=== PATIENT | male | born 1960 | race Caucasian/White ===

== ENCOUNTER → 2017-08-19 | Outpatient (CLI) | payer OTHER | END | disposition home or self-care (01) | LOC: RADMRIMAIN 05:55 | PROVIDERS: ATTEND Orthopaedic Surgery | DX: Z53.9 Procedure and treatment not carried out, unspecified reason (principal) ==

== ENCOUNTER → 2018-08-18 | Outpatient (CLI) | payer OTHER ==
--- NOTE | 2018-08-18 19:01 | CT ---
EXAMINATION TYPE: CT sinus wo con DATE OF EXAM: 08/18/2018 COMPARISON: 09/20/2015 HISTORY: Chronic sinusitis. CT DLP: 661.6 mGycm CONTRAST: 0 mL of Isovue 300 The paranasal sinuses are examined in the axial plane at 2 mm thick sections. Reconstructed images i n the coronal plane were obtained. There is mucosal thickening through the left maxillary sinus. Mucosal thickening and air-fluid levels within the right maxillary sinus. Air-fluid levels are within the sphenoid sinuses. There is opacifi cation of the ethmoid air cells bilaterally. There is an air-fluid level within the frontal sinus. Th e right frontal sinus may be severely hypoplastic. The septum is evaluated. There is septal deviation to the right. There appears to be prior uncinectomies. However, the hiatus semilunaris appears obstructed bilateral ly. IMPRESSIONS: 1. Pansinusitis. Acute sinusitis may be present. Consider polyposis potentially within the different ial. Findings appear recurrent from 09/20/2015
== END ==
LOC: RADCTMAIN 17:04
PROVIDERS: ATTEND Physician Assistant
DX: J32.4 Chronic pansinusitis (principal)
CPT/HCPCS: 70486

== ENCOUNTER → 2019-01-20 | Outpatient (CLI) | payer OTHER ==
--- NOTE | 2019-01-21 11:37 | XR ---
EXAMINATION TYPE: XR chest 2V DATE OF EXAM: 01/20/2019 COMPARISON: NONE HISTORY: History of COPD with chest congestion and recent pneumonia per patient. TECHNIQUE: Frontal and lateral views of the chest are obtained. FINDINGS: There is some chronic parenchymal change without suspicious focal air space opacity, pleur al effusion, or pneumothorax seen. Eventration of right hemidiaphragm is present. The cardiac silhoue tte size is upper limits of normal with slightly ectatic thoracic aorta. The osseous structures are intact. IMPRESSION: No suspicious acute pulmonary process.
== END | disposition home or self-care (01) ==
LOC: RADXRMAIN 17:02
PROVIDERS: ATTEND Nurse Practitioner Adult Health
DX: J44.1 Chronic obstructive pulmonary disease with (acute) exacerbation (principal)
CPT/HCPCS: 71046

== ENCOUNTER 2019-02-21 12:05 | Emergency (ER) | payer OTHER ==
[2019-02-21 12:34] VITALS: BP 127/87; PULSE 92; RESP 18; TEMP 98.5
[2019-02-21] MEDS ORDERED: SODIUM CHLORIDE 0.9% IRRIG 1,000 ML BTL IRRIGATION ONE (12:35)
[2019-02-21] MEDS ORDERED: DIPH,PERTUS(ACELL)TETVAC-LF 0.5 ML VIAL IM ONE (12:35)
[2019-02-21] MEDS: LIDOCAINE 1% INJ 10MG/ML (20 ML MDV) SQ ONE ×2 (13:00→13:12)
--- NOTE | 2019-02-21 13:11 | ED ---
Wound/Laceration HPI - General Chief Complaint: Wound/Laceration Stated Complaint: head lac Time Seen by Provider: 02/21/19 12:35 Source: patient Mode of arrival: ambulatory Limitations: no limitations - History of Present Illness Initial Comments: 59-year-old male with no pertinent past medical history presents today for chief complaint of head laceration. Patient states she was walking increase his head on a sharp metal object. Patient states there is no direct blunt trauma. Patient denies any headache nausea vomiting dizziness. Patient states this has an up-to-date tetanus. Patient states that the area was bleeding he felt he may need sutures and presents immersed her for further evaluation. Patient has no other complaints he states there is only pain at the site of laceration. Remaining review of systems negative. Patient appears well upon arrival bleeding controlled. No recent anticoagulation therapy. - Related Data Allergies Allergy/AdvReac Type Severity Reaction Status Date / Time No Known Allergies Allergy Verified 02/21/19 12:34 Review of Systems ROS Statement: Those systems with pertinent positive or pertinent negative responses have been documented in the HPI. ROS Other: All systems not noted in ROS Statement are negative. Past Medical History Past Medical History: COPD History of Any Multi-Drug Resistant Organisms: None Reported Past Surgical History: Hernia Repair, Orthopedic Surgery Past Psychological History: No Psychological Hx Reported Smoking Status: Light tobacco smoker Past Alcohol Use History: None Reported Past Drug Use History: None Reported General Exam - General Exam Comments Initial Comments: General: The patient is awake and alert, in no distress, and does not appear acutely ill. Eye: +3 mm pupils are equal, round and reactive to light, extra-ocular movements are intact. No nystagmus. There is normal conjunctiva bilaterally. No signs of icterus. Cardiovascular: There is a regular rate and rhythm. No murmur, rub or gallop is appreciated. Respiratory: Lungs are clear to auscultation, respirations are non-labored, breath sounds are equal. No wheezes, stridor, rales, or rhonchi. Musculoskeletal: Normal ROM, no tenderness. Strength 5/5. Sensation intact. Pulses equal bilaterally 2+. Neurological: A&O x 3. CN II-XII intact grossly, There are no obvious motor or sensory deficits. Coordination appears grossly intact. Speech is normal. Skin: Skin is warm and dry and no rashes. 7cm laceration of the right parietal region of scalp, no exposure of skull, no FB. Psychiatric: Cooperative, appropriate mood & affect, normal judgment. Limitations: no limitations Course Vital Signs 02/21/19 12:31 Temperature 98.5 F Pulse Rate 92 Respiratory 18 Rate Blood Pressure 127/87 O2 Sat by Pulse 95 Oximetry Procedures - Laceration Laceration #1 Consent Obtained: verbal consent Indication: laceration Site: scalp Size (cm): 7 Description: linear Depth: simple, single layer Pre-repair: wound explored, irrigated extensively, deep structures intact Size of Sutures: other (Leonard total of 9) Technique: other ([place]) Patient Tolerated Procedure: well, no complications Additional Comments: Area was extensively irrigated with saline. No evidence of foreign body or deeper injury. Patient refused local anesthetic stating he would rather just take the leonard. Medical Decision Making - Medical Decision Making Pleasant 59yo well-appearing 59-year-old male presenting for laceration to the scalp. Patient states there is no blunt trauma. Patient has no focal neurological complaints. No focal neurological deficits. Patient tetanus up-to-date. Patient states he irrigated the wound at work. I again extensively irrigated and cleansed the area prior to closure with 9 leonard. Case was discussed at length as well as return parameters. Patient verbalized understanding. At this time I do feel patient is stable for discharge with follow-up for staple removal or signs of infection. Patient is agreeable to this care plan and discharge at this time. Disposition Clinical Impression: Scalp laceration Disposition: HOME SELF-CARE Condition: Good Instructions (If sedation given, give patient instructions): Laceration (ED), Staple Care (ED) Additional Instructions: Please use medication as discussed. Please follow-up for staple removal in the ER in 5 days. Please return to emergency room if the symptoms increase or worsen or for any other concerns. Is patient prescribed a controlled substance at d/c from ED?: No Referrals: Kavon King MD [Primary Care Provider] - 1-2 days Time of Disposition: 13:11
== END 2019-02-21 13:14 | disposition home or self-care (01) ==
LOC: EC 12:05
DX: S01.01XA Laceration without foreign body of scalp, initial encounter (principal); F17.200 Nicotine dependence, unspecified, uncomplicated; Z53.29 Procedure and treatment not carried out because of patient's decision for other reasons; W22.8XXA Striking against or struck by other objects, initial encounter; Y93.01 Activity, walking, marching and hiking; Y92.69 Other specified industrial and construction area as the place of occurrence of the external cause; Y99.0 Civilian activity done for income or pay
CPT/HCPCS: 12002; 99282

== ENCOUNTER → 2022-01-06 | Outpatient (CLI) | payer OTHER | END | disposition home or self-care (01) | LOC: CPPFTMAIN 12:34 | PROVIDERS: ATTEND Family Medicine | DX: J44.9 Chronic obstructive pulmonary disease, unspecified (principal) | CPT/HCPCS: 94060; 94726; 94729 ==